=== PATIENT | male | born 1980 | race Caucasian/White ===

== ENCOUNTER → 2018-12-26 13:45 | Outpatient (CLI) | payer BC, SELFPAY ==
--- NOTE | 2018-12-26 13:58 | MR_ITS ---
MR head/brain wo con HISTORY: ITS.REASON: DIZZINESS, PAIN IN HEAD, VERTIGO ORDERING PHYSICIAN: Sreedhar Ma PATIENT AGE: 38 years Comparison: None TECHNIQUE: Standard multiplanar multiecho sequences are performed without contrast. FINDINGS: No midline shift, mass effect, intracranial hemorrhage, or hydrocephalus is evident. No evidence of acute infarction. The cerebellopontine angles, cerebellum, and brainstem are unremarkable. The pituitary, optic chiasm, corpus callosum, and craniocervical junction of an unremarkable appearance. There is normal del cid/white matter differentiation. There is mild mucosal thickening of the ethmoid sinus on the right. No sinus air-fluid level or mastoid effusion. The hippocampal gyri have an unremarkable appearance and the temporal horns are symmetric. No temporal lobe mass evident. IMPRESSION: Essentially negative MRI of the brain without contrast.
== END ==
PROVIDERS: PCP Family Medicine; Visit Provider Family Medicine
DX: R42 Dizziness and giddiness (principal)
CPT/HCPCS: 70551

== ENCOUNTER → 2020-05-27 11:10 | Outpatient (CLI) | payer BC, SELFPAY | PROVIDERS: PCP Family Medicine; Visit Provider Family Medicine | DX: Z20.828 Contact with and (suspected) exposure to other viral communicable diseases (principal); U07.1 COVID-19 | CPT/HCPCS: U0003 ==